=== PATIENT | male | born 1930 | race Caucasian/White ===

== ENCOUNTER 2018-11-28 16:50 | Emergency (ER) | payer MEDICARE ==
--- NOTE | 2018-11-28 17:06 | EDM.PDOC ---
ED HPI GENERAL MEDICAL PROBLEM - General Chief Complaint: Cardiovascular Problem Stated Complaint: MED[facility] Time Seen by Provider: 11/28/18 16:56 Source of Information: Reports: Patient, EMS History Limitations: Reports: Other (no old records) - History of Present Illness INITIAL COMMENTS - FREE TEXT/NARRATIVE: 88 yo male with an implanted defibrillator presents about 90-100 min after his defibrillator went off for the 3rd time in the last 2 days. He was a little light-headed before each of the administered shocks. Feels fine now. Is visiting for a 2 mos span from [place], [place]. Has not had chest pains. EMS transported today. Onset: Sudden Onset Date: 11/26/18 Duration: Day(s): (2+), Intermittent Location: Reports: Chest Quality: Reports: Other (Only pain is from the implanted defibrillator) Severity: Moderate Improves with: Reports: None Worsens with: Reports: Other (apparently going into V-fib) Context: Reports: Other (See HPI) Associated Symptoms: Reports: Other (light-headed before each shock) Treatments [employer]SM[employer]IST: Reports: Other (see below) (defibrillation) - Related Data Allergies Allergy/AdvReac Type Severity Reaction Status Date / Time No Known Allergies Allergy Verified 11/28/18 16:52 Home Meds: Home Meds Aspirin [Halfprin] 81 mg PO DAILY 11/28/18 [History] Metoprolol Succinate [Toprol XL] 25 mg PO DAILY 11/28/18 [History] atorvaSTATin [Lipitor] 10 mg PO BEDTIME 11/28/18 [History] ED ROS GENERAL - Review of Systems Review Of Systems: See Below Constitutional: Reports: No Symptoms HEENT: Reports: No Symptoms Respiratory: Reports: No Symptoms Cardiovascular: Reports: Lightheadedness Endocrine: Reports: No Symptoms GI/Abdominal: Reports: No Symptoms : Reports: No Symptoms Musculoskeletal: Reports: No Symptoms Skin: Reports: No Symptoms Neurological: Reports: No Symptoms Psychiatric: Reports: No Symptoms ED EXAM, GENERAL - Physical Exam Exam: See Below Exam Limited By: No Limitations General Appearance: Alert, WD/WN, No Apparent Distress Eye Exam: Bilateral Eye: Normal Inspection Ears: Normal External Exam, Normal Canal, Hearing Grossly Normal Ear Exam: Bilateral Ear: Auricle Normal, Canal Normal Nose: Normal Inspection, No Blood Throat/Mouth: Normal Inspection, Normal Lips, Normal Oropharynx, Normal Voice, No Airway Compromise Head: Atraumatic, Normocephalic Neck: Normal Inspection Respiratory/Chest: No Respiratory Distress, Lungs Clear, Normal Breath Sounds, No Accessory Muscle Use Cardiovascular: Regular Rate, Rhythm, No Edema GI/Abdominal: Normal Bowel Sounds, Soft, Non-Tender, No Distention Back Exam: Normal Inspection Extremities: Normal Inspection, Normal Range of Motion, Non-Tender, No Pedal Edema Neurological: Alert, Oriented, CN II-XII Intact, Normal Cognition, No Motor/ Sensory Deficits Psychiatric: Normal Affect, Normal Mood Skin Exam: Warm, Dry, Intact, Normal Color, No Rash EKG INTERPRETATION EKG Date: 11/28/18 Time: 17:00 Rhythm: NSR Rate (Beats/Min): 67 [place]: Normal P-Wave: Present QRS: Normal ST-T: Normal QT: Normal Comparison: NA - No Prior EKG EKG Interpretation Comments: LVH and early R wave transition anterior leads. Course - Vital Signs Text/Narrative:: discussed with [facility] [place], @ 1745h Last Recorded V/S: Last Vital Signs Temp 36.6 C 11/28/18 16:54 Pulse 77 11/28/18 16:54 Resp 13 11/28/18 16:54 BP 155/89 H 11/28/18 16:54 Pulse Ox 96 11/28/18 16:54 - Orders/Labs/Meds Orders: Active Orders 24 hr Category Date Time Status Cardiac Monitoring [RC] .As Directed Care 11/28/18 16:55 Active EKG Documentation Completion [RC] ASDIRECTED Care 11/28/18 16:55 Active EKG 12 Lead [EK] Routine Ther 11/28/18 16:55 Ordered Labs: Laboratory Tests 11/28/18 11/28/18 Range/Units 17:07 17:07 Sodium 139 L (140-148) mmol/L Potassium 3.8 (3.6-5.2) mmol/L Chloride 102 (100-108) mmol/L Carbon Dioxide 30 (21-32) mmol/L Anion Gap 10.8 (5.0-14.0) mmol/L BUN 15 (7-18) mg/dL Creatinine 0.8 (0.8-1.3) mg/dL Est Cr Clr Drug Dosing 75.69 mL/min Estimated GFR (MDRD) > 60 (>60) Glucose 130 H (74-106) mg/dL Calcium 8.9 (8.5-10.1) mg/dL Magnesium 1.9 (1.8-2.4) mg/dL Troponin I 0.056 (0.000-0.056) ng/mL Departure - Departure Time of Disposition: 17:46 Disposition: Home, Self-Care 01 Condition: Fair Clinical Impression: Defibrillator discharge Referrals: PCP,None [Primary Care Provider] - Forms: ED Department Discharge Additional Instructions: Increase your Toprol(metoprolol) to 50 mg daily. If this happens again go to [facility], they may want to admit you then for a trial of anti-arrhythmic medication. - My Orders Last 24 Hours: My Active Orders 11/28/18 16:55 Cardiac Monitoring [RC] .As Directed EKG Documentation Completion [RC] ASDIRECTED EKG 12 Lead [EK] Routine - Assessment/Plan Last 24 Hours: My Active Orders 11/28/18 16:55 Cardiac Monitoring [RC] .As Directed EKG Documentation Completion [RC] ASDIRECTED EKG 12 Lead [EK] Routine
== END 2018-11-28 17:59 | disposition home or self-care (01) ==
LOC: JP.ED 16:50
DX: T82.198A Other mechanical complication of other cardiac electronic device, initial encounter (principal); Z79.82 Long term (current) use of aspirin; Z79.899 Other long term (current) drug therapy
CPT/HCPCS: 36415; 80048; 83735; 84484; 93005; 93010; 99284; 99284-25

== ENCOUNTER 2020-11-10 07:40 | Emergency (ER) | payer MEDICARE ==
[2020-11-10] MEDS ORDERED: Albuterol/Ipratropium 3.0-0.5 MG/3 ML Neb Soln NEB ONE (08:54)
--- NOTE | 2020-11-10 08:57 | EDM.PDOC ---
ED HPI GENERAL MEDICAL PROBLEM - General Chief Complaint: Respiratory Problem Stated Complaint: FEVER, CONFUSION AND CHEST TIGHTNESS Time Seen by Provider: 11/10/20 08:46 Source of Information: Reports: Patient, Family, Old Records, RN Notes Reviewed History Limitations: Reports: No Limitations - History of Present Illness INITIAL COMMENTS - FREE TEXT/NARRATIVE: -89-year-old gentleman presents emergency department day complaint of shortness of breath, he states his been ill for about a week was in urgent care 2 days prior blood work chest x-ray at that time were unrevealing darted on a azithromycin and prednisone. He states he is taken 2 doses of antibiotics without any relief. He still having fevers fever this morning of 103 did have confusion with his fever. No significant sputum production mild cough feels dyspneic at this time no chest pain no or GI symptoms - Related Data Allergies Allergy/AdvReac Type Severity Reaction Status Date / Time No Known Allergies Allergy Verified 11/10/20 08:03 Home Meds: Home Meds Aspirin [Halfprin] 81 mg PO DAILY 11/28/18 [History] Metoprolol Succinate [Toprol XL] 100 mg PO DAILY 11/28/18 [History] Albuterol Sulfate [Albuterol Sulfate Hfa] 8.5 gm IH ASDIRECTED 11/10/20 [History] Azithromycin [Zithromax] 500 mg PO DAILY 11/10/20 [History] Cetirizine [ZyrTEC] 10 mg PO DAILY 11/10/20 [History] Doxycycline Monohydrate 100 mg PO BID #28 tablet 11/10/20 [Rx] Montelukast [Singulair] 10 mg PO DAILY 11/10/20 [History] predniSONE [Prednisone] 40 mg PO DAILY 11/10/20 [History] Past Medical History HEENT History: Reports: Impaired Vision Cardiovascular History: Reports: Arrhythmia, High Cholesterol, Hypertension, Pacemaker Other Cardiovascular History: left ventricle flutter Respiratory History: Reports: Asthma, SOB Gastrointestinal History: Reports: Chronic Diarrhea Genitourinary History: Reports: Prostate Disorder - Past Surgical History Head Surgeries/Procedures: Reports: None HEENT Surgical History: Reports: Adenoidectomy, Tonsillectomy Cardiovascular Surgical History: Reports: Other (See Below) Other Cardiovascular Surgeries/Procedures: defibrillator Respiratory Surgical History: Reports: None GI Surgical History: Reports: Appendectomy Dermatological Surgical History: Reports: None Social & Family History - Tobacco Use Tobacco Use Status *Q: Never Tobacco User - Caffeine Use Caffeine Use: Reports: None - Recreational Drug Use Recreational Drug Use: No ED ROS GENERAL - Review of Systems Review Of Systems: See Below Constitutional: Reports: Fever, Weakness, Fatigue HEENT: Reports: No Symptoms Respiratory: Reports: Shortness of Breath, Cough. Denies: Wheezing, Sputum Cardiovascular: Reports: Dyspnea on Exertion GI/Abdominal: Reports: No Symptoms : Reports: No Symptoms Musculoskeletal: Reports: No Symptoms ED EXAM, GENERAL - Physical Exam Exam: See Below Exam Limited By: No Limitations General Appearance: Alert, WD/WN, No Apparent Distress Respiratory/Chest: No Accessory Muscle Use, Chest Non-Tender, Decreased Breath Sounds, Crackles Cardiovascular: Regular Rate, Rhythm, No Murmur GI/Abdominal: Soft, Non-Tender Course - Vital Signs Last Recorded V/S: Last Vital Signs Temp 98 F 11/10/20 15:02 Pulse 81 11/10/20 15:02 Resp 12 11/10/20 15:02 BP 116/44 L 11/10/20 15:02 Pulse Ox 98 11/10/20 15:02 - Orders/Labs/Meds Orders: Active Orders 24 hr Category Date Time Status Peripheral IV Care [RC] . DIRECTED Care 11/10/20 10:31 Active RT Aerosol Therapy [RC] ASDIRECTED Care 11/10/20 08:54 Active Sodium Chloride 0.9% [Normal Saline] 1,000 ml Med 11/10/20 10:30 Active IV ASDIRECTED Sodium Chloride 0.9% [Saline Flush] Med 11/10/20 10:30 Active 10 ml FLUSH ASDIRECTED PRN Isolation [COMM] Stat Oth 11/10/20 08:55 Ordered Peripheral IV Insertion Adult [OM.PC] Urgent Oth 11/10/20 10:30 Ordered Medication Orders Sodium Chloride (Normal Saline) 1,000 mls @ 500 mls/hr IV ASDIRECTED STEPHANIE Last Admin: 11/10/20 10:58 Dose: 500 mls/hr Documented by: LAQUITA Sodium Chloride (Sodium Chloride 0.9% 10 Ml Syringe) 10 ml FLUSH ASDIRECTED PRN PRN Reason: Keep Vein Open Last Admin: 11/10/20 11:09 Dose: 10 ml Documented by: HENRKYL Labs: Laboratory Tests 11/10/20 11/10/20 11/10/20 Range/Units 08:55 09:16 09:16 WBC 6.0 (4.5-11.0) K/uL RBC 4.03 L (4.30-5.90) M/uL Hgb 12.3 (12.0-15.0) g/dL Hct 36.2 L (40.0-54.0) % MCV 90 (80-98) fL MCH 31 (27-31) pg MCHC 34 (32-36) % Plt Count 50 L (150-400) K/uL Add Manual Diff Yes Neutrophils % (Manual) 84 H (36-66) % Band Neutrophils % 11 (5-11) % Lymphocytes % (Manual) 3 L (24-44) % Monocytes % (Manual) 2 (2-6) % D-Dimer, Quantitative (0.0-500.0) ng/mL Sodium 130 L (140-148) mmol/L Potassium 3.8 (3.6-5.2) mmol/L Chloride 95 L (100-108) mmol/L Carbon Dioxide 27 (21-32) mmol/L Anion Gap 11.8 (5.0-14.0) mmol/L BUN 25 H D (7-18) mg/dL Creatinine 1.3 D (0.8-1.3) mg/dL Est Cr Clr Drug Dosing 41.67 mL/min Estimated GFR (MDRD) 52 L (>60) Glucose 101 (74-106) mg/dL Lactic Acid (0.4-2.0) mmol/L Calcium 8.0 L (8.5-10.1) mg/dL Total Bilirubin 2.3 H (0.2-1.0) mg/dL AST 100 H (15-37) U/L ALT 64 (12-78) U/L Alkaline Phosphatase 244 H (46-116) U/L Troponin I 0.020 (0.000-0.056) ng/mL NT-Pro-B Natriuret Pep 5634 H (5-450) pg/mL Total Protein 5.5 L (6.4-8.2) g/dL Albumin 2.5 L (3.4-5.0) g/dL Globulin 3.0 (2.3-3.5) g/dL Albumin/Globulin Ratio 0.8 L (1.2-2.2) Procalcitonin ng/mL Influenza Type A RNA Negative (NEGATIVE) RSV RNA (INAAT) Negative (NEGATIVE) Influenza Type B RNA Negative (NEGATIVE) SARS-CoV-2 RNA (BALJEET) Negative (NEGATIVE) 11/10/20 11/10/20 11/10/20 Range/Units 09:16 09:16 09:16 WBC (4.5-11.0) K/uL RBC (4.30-5.90) M/uL Hgb (12.0-15.0) g/dL Hct (40.0-54.0) % MCV (80-98) fL MCH (27-31) pg MCHC (32-36) % Plt Count (150-400) K/uL Add Manual Diff Neutrophils % (Manual) (36-66) % Band Neutrophils % (5-11) % Lymphocytes % (Manual) (24-44) % Monocytes % (Manual) (2-6) % D-Dimer, Quantitative 30906.44 H (0.0-500.0) ng/mL Sodium (140-148) mmol/L Potassium (3.6-5.2) mmol/L Chloride (100-108) mmol/L Carbon Dioxide (21-32) mmol/L Anion Gap (5.0-14.0) mmol/L BUN (7-18) mg/dL Creatinine (0.8-1.3) mg/dL Est Cr Clr Drug Dosing mL/min Estimated GFR (MDRD) (>60) Glucose (74-106) mg/dL Lactic Acid 1.9 (0.4-2.0) mmol/L Calcium (8.5-10.1) mg/dL Total Bilirubin (0.2-1.0) mg/dL AST (15-37) U/L ALT (12-78) U/L Alkaline Phosphatase (46-116) U/L Troponin I (0.000-0.056) ng/mL NT-Pro-B Natriuret Pep (5-450) pg/mL Total Protein (6.4-8.2) g/dL Albumin (3.4-5.0) g/dL Globulin (2.3-3.5) g/dL Albumin/Globulin Ratio (1.2-2.2) Procalcitonin 2.69 H* ng/mL Influenza Type A RNA (NEGATIVE) RSV RNA (INAAT) (NEGATIVE) Influenza Type B RNA (NEGATIVE) SARS-CoV-2 RNA (BALJEET) (NEGATIVE) Meds: Medications Generic Name Dose Route Start Last Admin Trade Name Adalidq PRN Reason Stop Dose Admin Sodium Chloride 1,000 mls @ 500 mls/hr 11/10/20 10:30 11/10/20 10:58 Normal Saline IV 500 mls/hr ASDIRECTED STEPHANIE Administration Sodium Chloride 10 ml 11/10/20 10:30 11/10/20 11:09 Sodium Chloride 0.9% 10 Ml Syringe FLUSH 10 ml ASDIRECTED PRN Administration Keep Vein Open Discontinued Medications Generic Name Dose Route Start Last Admin Trade Name Oswald PRN Reason Stop Dose Admin Albuterol/Ipratropium 3 ml 11/10/20 08:54 11/10/20 09:10 Albuterol/Ipratropium 3.0-0.5 Mg/3 Ml Neb Soln NEB 11/10/20 08:55 3 ml ONETIME ONE Administration Furosemide 40 mg 11/10/20 11:38 11/10/20 12:16 Furosemide 40 Mg/4 Ml Vial IVPUSH 11/10/20 11:39 40 mg ONETIME ONE Administration Sodium Chloride 100 mls @ 3 mls/sec 11/10/20 10:45 11/10/20 11:09 Normal Saline IV 11/10/20 10:46 3 mls/sec ASDIRECTED STEPHANIE Administration Iopamidol 100 ml 11/10/20 10:45 11/10/20 11:08 Iopamidol 755 Mg/Ml 100 Ml Bottle IV 11/10/20 10:46 100 ml . DIRECTED STEPHANIE Administration Sodium Chloride 10 ml 11/10/20 10:36 11/10/20 10:58 Sodium Chloride 0.9% 10 Ml Syringe FLUSH 11/10/20 10:37 10 ml ONETIME ONE Administration Departure - Departure Time of Disposition: 15:18 Disposition: Home, Self-Care 01 Condition: Fair Clinical Impression: Tick-borne disease - Discharge Information Prescriptions: Doxycycline Monohydrate 100 mg PO BID #28 tablet Referrals: PCP,None [Primary Care Provider] - Forms: ED Department Discharge Additional Instructions: Take full course of antibiotics, your antibiotics have been faxed to [facility], please keep your follow-up appointment with the [facility] in November. To help combat tick disease recommend a product called permethrin which can be purchased at [employer] or online Sepsis Event Note (ED) - Evaluation Sepsis Screening Result: No Definite Risk - Focused Exam Vital Signs: Vital Signs Temp Pulse Resp BP Pulse Ox 11/10/20 15:02 98 F 81 12 116/44 L 98 11/10/20 14:00 78 12 119/57 L 96 11/10/20 13:00 83 12 119/54 L 95 11/10/20 12:00 98 F 72 14 115/55 L 96 11/10/20 10:59 14 113/43 L 98 11/10/20 10:00 77 16 111/47 L 94 L 11/10/20 08:08 98.0 F 75 15 105/47 L 96 11/10/20 08:02 98.0 F 75 15 105/47 L 96 - My Orders Last 24 Hours: My Active Orders 11/10/20 08:54 RT Aerosol Therapy [RC] ASDIRECTED 11/10/20 08:55 Isolation [COMM] Stat 11/10/20 10:30 Sodium Chloride 0.9% [Normal Saline] 1,000 ml IV ASDIRECTED Sodium Chloride 0.9% [Saline Flush] 10 ml FLUSH ASDIRECTED PRN Peripheral IV Insertion Adult [OM.PC] Urgent 11/10/20 10:31 Peripheral IV Care [RC] . DIRECTED - Assessment/Plan Last 24 Hours: My Active Orders 11/10/20 08:54 RT Aerosol Therapy [RC] ASDIRECTED 11/10/20 08:55 Isolation [COMM] Stat 11/10/20 10:30 Sodium Chloride 0.9% [Normal Saline] 1,000 ml IV ASDIRECTED Sodium Chloride 0.9% [Saline Flush] 10 ml FLUSH ASDIRECTED PRN Peripheral IV Insertion Adult [OM.PC] Urgent 11/10/20 10:31 Peripheral IV Care [RC] . DIRECTED Plan: Assessment Acuity = acute Site and laterality = tickborne illness Etiology = suspicious for anaplasmosis Manifestations = none Location of injury = Home Lab values = CBC reveals the platelets low at 50 consistent with thr ombocytopenia, D-dimer markedly elevated 22,096 of uncertain significance sodium low at 130 hyponatremia lactic acid normal 1.9 total bilirubin elevated 2.3 consistent hyperbilirubinemia, AST elevated at 100 consistent with elevated liver enzymes troponin is 0.020 within the normal range but detectable, BNP elevated 5634 consistent with fluid overload type pattern, albumin low at 2.5 consistent with hypobulimia procalcitonin elevated 2.69 of uncertain significance Covid was negative influenza a and B both negative RSV negative, chest x-ray shows no acute pulmonary process however CT scan does show some bronchial wall thickening no pulmonary embolism no pneumonia is identified ultrasound shows normal gallbladder but dilated gallbladder but duct at 8 mm of uncertain significance Plan I did review lab CT scan results with him he does admit that he has found some small deer ticks on him when [place] out in [place] I am very suspicious for tickborne illness given his fever inflammatory markers being extremely high. His lab work does not fit with a pneumonia does not fit with the sepsis does not fully fit with congestive heart failure. Does not fit with gallbladder disease. Can stop his azithromycin and prednisone change antibiotics to doxycycline for 14 days he does have a follow-up appointment with primary care first part of November his medications have been faxed to [facility] This note was dictated using [employer] voice recognition software please call with any questions on syntax or grammar.
[2020-11-10 09:51] LABS: CORONAVIRUS COVID-19 NAA NEGATIVE (NEGATIVE)
--- NOTE | 2020-11-10 09:59 | CR ---
CHEST: 2 view CLINICAL HISTORY:SOB COMPARISON:None FINDINGS: The heart size, pulmonary vascularity and hilar structures are normal. No infiltrate effusion or pneumothorax is seen. Lungs are emphysematous. Patient has a permanent cardiac pacer/defibrillator IMPRESSION: No acute cardiopulmonary process. Emphysematous changes Permanent cardiac pacer/fibrillator
[2020-11-10] MEDS ORDERED: Sodium Chloride 0.9% 10 ML Syringe FLUSH PRN (10:30)
[2020-11-10] MEDS ORDERED: Sodium Chloride 0.9% 1,000 ML IV SCH (10:30)
[2020-11-10] MEDS ORDERED: Sodium Chloride 0.9% 10 ML Syringe FLUSH ONE (10:36)
[2020-11-10] MEDS ORDERED: Iopamidol 755 Mg/ML 100 ML Bottle IV SCH (10:45)
[2020-11-10] MEDS ORDERED: Sodium Chloride 0.9% 100 ML IV SCH (10:45)
--- NOTE | 2020-11-10 11:18 | CT ---
Ang Chest CLINICAL HISTORY: Elevated d-dimer, elevated BNP TECHNIQUE: Thin section axial contiguous tomographic sections were taken through the chest after bolus IV iodinated contrast administration. Coronal and sagittal images were reconstructed. Auto dosage reduction and iterative reconstruction techniques employed. FINDINGS: There is patchy groundglass opacification in both lower lung almazan. There is diffuse bronchial thickening. There are a few scattered bulla. No pulmonary masses identified. No mediastinal mass or lymphadenopathy is identified. Patient is a permanent cardiac pacer/defibrillator. No acute intraluminal thrombus is identified. There are some irregularities in some of the smaller branching vessels in the left lower lobe. This may be from prior thrombus and recanalization. There is a small right pleural effusion and some right lower lobe airspace disease which appears to be patchy atelectasis IMPRESSION: No acute pulmonary emboli identified Patchy posterior groundglass opacities bilaterally. This may represent some dependent edema in the lung almazan Moderate diffuse bronchial thickening Scattered areas of pleural parenchymal scarring Small bilateral effusions
[2020-11-10] MEDS ORDERED: Furosemide 40 MG/4 ML VIAL IVPUSH ONE (11:38)
--- NOTE | 2020-11-10 14:51 | US ---
Abdomen Ltd CLINICAL HISTORY: Elevated bilirubin COMPARISON: None. TECHNIQUE: Real-time images were obtained through the right upper quadrant. FINDINGS: The liver is free of mass or biliary dilatation. There is normal hepatic echotexture. The gallbladder has a normal appearance. The common bile duct measures 8 mm. The pancreas is free of masses seen. Tail is obscured. The right kidney has a normal appearance. The IVC is normal. IMPRESSION: Common bile duct is borderline dilated at 8 mm. This may be age-related No mass or stones identified
== END 2020-11-10 15:51 | disposition home or self-care (01) ==
LOC: JP.ED 07:40
DX: A93.8 Other specified arthropod-borne viral fevers (principal); E78.00 Pure hypercholesterolemia, unspecified; I10 Essential (primary) hypertension; J45.909 Unspecified asthma, uncomplicated; Z79.899 Other long term (current) drug therapy; Z79.82 Long term (current) use of aspirin; Z95.0 Presence of cardiac pacemaker; Z20.822 Contact with and (suspected) exposure to COVID-19
CPT/HCPCS: 0241U; 36415; 71046; 71275; 76705; 80053; 83605; 83880; 84145; 84484; 85025; 85379; 94640; 96374; 99285; J1940; J7030; Q9967; J7620-GY

== ENCOUNTER 2020-12-13 17:08 | Emergency (ER) | payer MEDICARE ==
--- NOTE | 2020-12-13 18:44 | EDM.PDOC ---
ED HPI GENERAL MEDICAL PROBLEM - General Chief Complaint: Neurological Problem Stated Complaint: DIZZINESS Time Seen by Provider: 12/13/20 18:06 Source of Information: Reports: Patient History Limitations: Reports: No Limitations - History of Present Illness INITIAL COMMENTS - FREE TEXT/NARRATIVE: Ceferino is an 89-year-old male presenting to the ED for evaluation of probable syncopal episode that occurred yesterday. The patient states that he was walking in from his porch into his house and tried to open a door. He acutely became short of breath and started to take deep rapid breaths to catch his air. He started to feel funny and then apparently passed out falling through the door into the house. He did strike his forehead on the ground and was unresponsive for about 3 to 4 seconds according to his family. He did not have any loss of bowel or bladder control. He did sustain significant hematoma to the center of his forehead and this morning when he awoke he had bilateral periorbital ecchymosis. He does also have swelling over the nasal bridge but denies any significant tenderness there. He does state that this is happened before but he is never completely gone out except one time prior which was before he had his AICD pacemaker placed. He does recall that the event that led to that was a syncopal episode and that he had to be "shocked by medics" at his house. He reports that he woke up in the hospital after that and the next day he ended up getting the AICD pacemaker which was about 5 or 6 years ago. He does report they checked the device every 3 to 4 months. He says it has been a while since he has been "shocked". He is complaining of a mild headache and neck pain today. He states the neck pain is mostly on the muscles on the side of his neck (left greater than right). He also reports that he had a similar episode that lasted a few minutes today but he did not pass out this time he simply kneeled in he started to feel better. He reports that each time it starts with feeling like he cannot catch his breath and that is few seconds before he blacks out. - Related Data Allergies Allergy/AdvReac Type Severity Reaction Status Date / Time No Known Allergies Allergy Verified 12/13/20 17:23 Home Meds: Home Meds Aspirin [Halfprin] 81 mg PO DAILY 11/28/18 [History] Metoprolol Succinate [Toprol XL] 100 mg PO DAILY 11/28/18 [History] Albuterol Sulfate [Albuterol Sulfate Hfa] 8.5 gm IH ASDIRECTED 11/10/20 [History] Azithromycin [Zithromax] 500 mg PO DAILY 11/10/20 [History] Cetirizine [ZyrTEC] 10 mg PO DAILY 11/10/20 [History] Montelukast [Singulair] 10 mg PO DAILY 11/10/20 [History] Ascorbic Acid [Vitamin C] 1 tab PO DAILY 12/13/20 [History] methocarbamoL [Methocarbamol] 500 mg PO QID PRN #28 tablet 12/13/20 [Rx] Past Medical History HEENT History: Reports: Impaired Vision Cardiovascular History: Reports: Arrhythmia, High Cholesterol, Hypertension, Pacemaker Other Cardiovascular History: left ventricle flutter Respiratory History: Reports: Asthma, SOB Gastrointestinal History: Reports: Chronic Diarrhea Genitourinary History: Reports: Prostate Disorder - Past Surgical History Head Surgeries/Procedures: Reports: None HEENT Surgical History: Reports: Adenoidectomy, Tonsillectomy Cardiovascular Surgical History: Reports: Other (See Below) Other Cardiovascular Surgeries/Procedures: defibrillator Respiratory Surgical History: Reports: None GI Surgical History: Reports: Appendectomy Dermatological Surgical History: Reports: None Social & Family History - Caffeine Use Caffeine Use: Reports: None ED ROS GENERAL - Review of Systems Review Of Systems: See Below Constitutional: Reports: No Symptoms HEENT: Reports: Vision Change (Mild blurring of the vision), Other (Swelling and bruising around both orbits) Respiratory: Reports: Shortness of Breath (Only before the syncopal episode) Cardiovascular: Reports: No Symptoms Endocrine: Reports: No Symptoms GI/Abdominal: Reports: No Symptoms : Reports: No Symptoms Musculoskeletal: Reports: Neck Pain (Mild neck pain on the left side. Muscle stiffness bilateral neck paraspinal muscles.) Skin: Reports: No Symptoms Neurological: Reports: Dizziness (Mild dizziness), Headache (Mild headache) Psychiatric: Reports: No Symptoms Hematologic/Lymphatic: Reports: No Symptoms Immunologic: Reports: No Symptoms - Physical Exam Exam: See Below Exam Limited By: No Limitations General Appearance: Alert, No Apparent Distress Eye Exam: Bilateral Eye: EOMI, Periorbital Changes (Periorbital hematomas), PERRL Ears: Normal External Exam, Normal TMs Nose: Normal Inspection, Normal Mucosa, No Blood Throat/Mouth: Normal Inspection, Normal Lips, Normal Teeth, Normal Oropharynx, Normal Voice, No Airway Compromise Head Exam: Normocephalic, Facial Swelling (Large forehead hematoma), Facial Tenderness (Redness over the hematoma mild tenderness over the nasal bridge) Neck: Supple, Full Range of Motion, Tender Lateral (Tenderness over the paraspinal muscles left greater than right) Respiratory/Chest: No Respiratory Distress, Lungs Clear, Normal Breath Sounds Cardiovascular: Normal Peripheral Pulses, Regular Rate, Rhythm, No Murmur GI/Abdominal: Normal Bowel Sounds, Soft, Non-Tender Neuro Exam (Abbreviated): Alert, Oriented, CN II-XII Intact, Normal Cognition, No Motor/Sensory Deficits Back Exam: Normal Inspection, Full Range of Motion Extremities: Normal Inspection, Normal Range of Motion, No Pedal Edema, Normal Capillary Refill Psychiatric: Normal Affect, Normal Mood Skin Exam: Warm, Dry, Ecchymosis (Periorbital ecchymosis) #1 Interpretation EKG Date: 12/13/20 Time: 18:32 Rhythm: Other (Atrial paced rhythm) Rate (Beats/Min): 60 [place]: Normal P-Wave: Present (Atrial paced rhythm) QRS: Wide ST-T: Other QT: Prolonged Course - Vital Signs Last Recorded V/S: Last Vital Signs Temp 36.6 C 12/13/20 17:43 Pulse 75 12/13/20 17:43 Resp 13 12/13/20 17:43 BP 142/55 H 12/13/20 17:43 Pulse Ox 97 12/13/20 17:43 Orthostatic Blood Pressure [ 108/57 Standing] Orthostatic Blood Pressure [ 120/61 Sitting] Orthostatic Blood Pressure [ 117/54 Supine] - Orders/Labs/Meds Orders: Active Orders 24 hr Category Date Time Status Cervical Spine wo Cont [CT] Stat Exams 12/13/20 18:21 Taken Head wo Cont [CT] Stat Exams 12/13/20 18:21 Taken Max Facial Sinus wo Cont [CT] Stat Exams 12/13/20 18:21 Taken EKG 12 Lead [EK] Routine Ther 12/13/20 18:21 Ordered Labs: Laboratory Tests 12/13/20 12/13/20 Range/Units 18:30 18:30 WBC 7.0 (4.5-11.0) K/uL RBC 3.96 L (4.30-5.90) M/uL Hgb 12.0 (12.0-15.0) g/dL Hct 37.8 L (40.0-54.0) % MCV 96 (80-98) fL MCH 30 (27-31) pg MCHC 32 (32-36) % Plt Count 204 (150-400) K/uL Neut % (Auto) 57.6 (36-66) % Lymph % (Auto) 27.8 (24-44) % [place] % (Auto) 13.5 H (2-6) % Eos % (Auto) 1.0 L (2-4) % Baso % (Auto) 0.1 (0-1) % Sodium 138 L (140-148) mmol/L Potassium 4.0 (3.6-5.2) mmol/L Chloride 103 (100-108) mmol/L Carbon Dioxide 29 (21-32) mmol/L Anion Gap 10.0 (5.0-14.0) mmol/L BUN 15 (7-18) mg/dL Creatinine 0.8 (0.8-1.3) mg/dL Est Cr Clr Drug Dosing 13.36 mL/min Estimated GFR (MDRD) > 60 (>60) Glucose 106 (74-106) mg/dL Calcium 8.5 (8.5-10.1) mg/dL Magnesium 1.9 (1.8-2.4) mg/dL Total Bilirubin 0.3 D (0.2-1.0) mg/dL AST 19 D (15-37) U/L ALT 18 (12-78) U/L Alkaline Phosphatase 152 H (46-116) U/L Troponin I < 0.017 (0.000-0.056) ng/mL Total Protein 6.0 L (6.4-8.2) g/dL Albumin 2.7 L (3.4-5.0) g/dL Globulin 3.3 (2.3-3.5) g/dL Albumin/Globulin Ratio 0.8 L (1.2-2.2) TSH, Ultra Sensitive 1.982 (0.358-3.740) uIU/mL - Radiology Interpretation Free Text/Narrative:: I reviewed the edges of the CT of the head without contrast as well as the report demonstrating as follows: IMPRESSION: No evidence of acute intracranial trauma. Frontal scalp hematoma. Dictated by Vickey Leon MD @ 12/13/2020 7:34:23 PM Please note that all CT scans at this facility use dose modulation, iterative reconstruction, and/or weight-based dosing when appropriate to reduce radiation dose to as low as reasonably achievable. Dictated by: Vickey Leon MD @ 12/13/2020 19:34:27 I reviewed the images of the CT of the cervical spine without contrast as well as the report demonstrating as follows: FINDINGS: Vertebral alignment: Alignment is normal. Vertebrae: There are no fractures or suspicious bony lesions. Discs and facet joints: Multilevel degenerative changes. Extraspinal findings: Prevertebral soft tissues, visualized airway, and visualized lungs are unremarkable. IMPRESSION: No evidence of acute cervical spine trauma. Multilevel degenerative changes. Dictated by Vickey Leon MD @ 12/13/2020 7:36:42 PM I reviewed the images of the CT of the facial bones without contrast as well as the report demonstrating as follows: FINDINGS: Facial bones: No fractures or bone lesions. Specifically the nasal bones, temporomandibular joints, maxilla and mandible appear intact. Orbits and globes: Unremarkable. Sinuses: No acute or significant findings. Soft tissues: Frontal scalp hematoma. IMPRESSION: No fractures. Frontal scalp hematoma. Dictated by Vickey Leon MD @ 12/13/2020 7:32:37 PM - Re-Assessments/Exams Free Text/Narrative Re-Assessment/Exam: 12/13/20 19:41 reviewed the reports on the CT of the head, facial bones, and cervical spine. There were no acute findings other than a facial hematoma over the forehead. There were no acute fractures. There was no evidence for intracranial bleed, mass, or midline shift. There was no cranial abnormalities noted. The cervical spine showed multilevel degenerative disc changes but no acute findings. His labs were reviewed showing a normal CBC with a leukocyte count of 7.0, hemoglobin of 12.0, hematocrit of 37.8 and a platelet count of 204,000. Comprehensive metabolic panel was normal. Troponin was less than 0.017. TSH was normal at 1.982. EKG shows an atrial paced rhythm with a wide QRS and prolonged QT. This is unchanged from his previous EKG. It sounds like the patient is having a syncopal episode likely vasovagal in nature, however, I cannot rule out the possibility of a tacky or bradycardia arrhythmia causing his symptoms. He does report having acute onset of shortness of breath like he cannot catch his breath just prior to the events which would be worrisome for a cardiac cause. He may benefit from either a Holter monitor or Zio patch to try to catch 1 of these events as they appear to occur somewhat frequently. I will have his primary physician set this up. At this time, I do not see anything worrisome, however, the patient knows what to do if he has onset of symptoms which is to sit or lay down to try to preserve cerebral blood flow. To date, these all seem to be fairly brief episodes. He did sit suffer significant facial contusions which will take time to resolve. I will put him on a little bit of methocarbamol for the cervical spasm (500 mg 4 times daily as needed for muscle spasm dispensing 28 tablets.) Indications to return to the ED were discussed but at this time the patient is suitable for discharge home in satisfactory condition. Departure - Departure Time of Disposition: 19:46 Disposition: Home, Self-Care 01 Clinical Impression: Syncopal episodes Qualifiers: Syncope type: unspecified Qualified Code(s): R55 - Syncope and collapse Contusion of face Qualifiers: Encounter type: initial encounter Qualified Code(s): S00.83XA - Contusion of other part of head, initial encounter Traumatic contusion of periorbital region Qualifiers: Encounter type: initial encounter Laterality: unspecified laterality Qualified Code(s): S05.10XA - Contusion of eyeball and orbital tissues, unspecified eye, initial encounter Acute cervical myofascial strain Qualifiers: Encounter type: initial encounter Qualified Code(s): S16.1XXA - Strain of muscle, fascia and tendon at neck level, initial encounter - Discharge Information Instructions: Facial or Scalp Contusion, [id number], Syncope, [id number], Cervical Strain and Sprain Rehab-Sports[facility] Referrals: Netta Gaxiola PA-C [Primary Care Provider] - Forms: ED Department Discharge Care Plan Goals: The work-up today suggest that she may be having arrhythmias causing your sudden shortness of breath and episodes where you are passing out or near passing out. I would recommend talking to your primary care provider about getting a device called a Zio patch which is a 30-day Holter monitor so you are able to see what cardiac event is causing the symptoms. Unfortunately this is not something we typically set up from the emergency room because the report would come back to us in the emergency room and not to your primary doctor. Your work-up today has not shown any significant injury other than strain of the neck muscles and significant bruising of your face. Your lab work today also looked good. You may want to talk to cardiology about interrogating your pacemaker/defibrillator to make sure that the battery is still adequate. I am sending you home with a prescription for methocarbamol which is a fairly potent muscle relaxer to help reduce the spasm in your neck. You may also use ice on the area 20 to 30 minutes every couple hours you are awake for the next day or 2 to reduce spasm. Continue to take Tylenol for pain. Feel free to contact us if you have any questions. Sepsis Event Note (ED) - Evaluation Sepsis Screening Result: No Definite Risk - Focused Exam Vital Signs: Vital Signs Temp Pulse Resp BP Pulse Ox 12/13/20 17:43 36.6 C 75 13 142/55 H 97 12/13/20 17:21 36.6 C 75 13 142/55 H 97 - Problem List & Annotations (1) Acute cervical myofascial strain SNOMED Code(s): 037616496, 513518161, 654064345 Code(s): S16.1XXA - STRAIN OF MUSCLE, FASCIA AND TENDON AT NECK LEVEL, INIT Status: Acute Priority: Medium Current Visit: Yes Qualifiers: Encounter type: initial encounter Qualified Code(s): S16.1XXA - Strain of muscle, fascia and tendon at neck level, initial encounter (2) Contusion of face SNOMED Code(s): 955319326 Code(s): S00.83XA - CONTUSION OF OTHER PART OF HEAD, INITIAL ENCOUNTER Status: Acute Priority: Medium Current Visit: Yes Qualifiers: Encounter type: initial encounter Qualified Code(s): S00.83XA - Contusion of other part of head, initial encounter (3) Syncopal episodes SNOMED Code(s): 289619628 Code(s): R55 - SYNCOPE AND COLLAPSE Status: Acute Priority: Medium Current Visit: Yes Qualifiers: Syncope type: unspecified Qualified Code(s): R55 - Syncope and collapse (4) Traumatic contusion of periorbital region SNOMED Code(s): 265326339 Code(s): S05.10XA - CONTUSION OF EYEBALL AND ORBITAL TISSUES, UNSP EYE, INIT Status: Acute Priority: Medium Current Visit: Yes Qualifiers: Encounter type: initial encounter Laterality: unspecified laterality Qualified Code(s): S05.10XA - Contusion of eyeball and orbital tissues, unspecified eye, initial encounter - Problem List Review Problem List Initiated/Reviewed/Updated: Yes - My Orders Last 24 Hours: My Active Orders 12/13/20 18:21 Cervical Spine wo Cont [CT] Stat Head wo Cont [CT] Stat Max Facial Sinus wo Cont [CT] Stat EKG 12 Lead [EK] Routine - Assessment/Plan Last 24 Hours: My Active Orders 12/13/20 18:21 Cervical Spine wo Cont [CT] Stat Head wo Cont [CT] Stat Max Facial Sinus wo Cont [CT] Stat EKG 12 Lead [EK] Routine
--- NOTE | 2020-12-13 19:34 | CRLCT ---
For Patients: As a result of the Cures Act, medical imaging exams and procedure reports are released immediately into your electronic medical record. You may view this report before your referring provider. If you have questions, please contact your health care provider. INDICATION: Trauma TECHNIQUE: CT maxillofacial without contrast. COMPARISON: None FINDINGS: Facial bones: No fractures or bone lesions. Specifically the nasal bones, temporomandibular joints, maxilla and mandible appear intact. Orbits and globes: Unremarkable. Sinuses: No acute or significant findings. Soft tissues: Frontal scalp hematoma. IMPRESSION: No fractures. Frontal scalp hematoma. Dictated by Vickey Leon MD @ 12/13/2020 7:32:37 PM Please note that all CT scans at this facility use dose modulation, iterative reconstruction, and/or weight-based dosing when appropriate to reduce radiation dose to as low as reasonably achievable. Dictated by: Vickey Leon MD @ 12/13/2020 19:32:43 (Electronically Signed)
--- NOTE | 2020-12-13 19:36 | CRLCT ---
For Patients: As a result of the Century Cures Act, medical imaging exams and procedure reports are released immediately into your electronic medical record. You may view this report before your referring provider. If you have questions, please contact your health care provider. INDICATION: Trauma TECHNIQUE: CT head without contrast. COMPARISON: None FINDINGS: CSF spaces: Within normal limits for age. Brain parenchyma: The camilo-white differentiation is normal. No sign of mass, hemorrhage, or midline shift. Skull base and calvarium: The visualized paranasal sinuses and mastoid air cells demonstrate no acute or significant findings. The visualized orbits are grossly unremarkable. No skull fractures. Frontal scalp hematoma. IMPRESSION: No evidence of acute intracranial trauma. Frontal scalp hematoma. Dictated by Vickey Leon MD @ 12/13/2020 7:34:23 PM Please note that all CT scans at this facility use dose modulation, iterative reconstruction, and/or weight-based dosing when appropriate to reduce radiation dose to as low as reasonably achievable. Dictated by: Vickey Leon MD @ 12/13/2020 19:34:27 (Electronically Signed)
--- NOTE | 2020-12-13 19:38 | CRLCT ---
For Patients: As a result of the Cures Act, medical imaging exams and procedure reports are released immediately into your electronic medical record. You may view this report before your referring provider. If you have questions, please contact your health care provider. INDICATION: Trauma TECHNIQUE: CT cervical spine without contrast. COMPARISON: None FINDINGS: Vertebral alignment: Alignment is normal. Vertebrae: There are no fractures or suspicious bony lesions. Discs and facet joints: Multilevel degenerative changes. Extraspinal findings: Prevertebral soft tissues, visualized airway, and visualized lungs are unremarkable. IMPRESSION: No evidence of acute cervical spine trauma. Multilevel degenerative changes. Dictated by Vickey Leon MD @ 12/13/2020 7:36:42 PM Please note that all CT scans at this facility use dose modulation, iterative reconstruction, and/or weight-based dosing when appropriate to reduce radiation dose to as low as reasonably achievable. Dictated by: Vickey Leon MD @ 12/13/2020 19:36:45 (Electronically Signed)
[2020-12-13] MEDS ORDERED: Methocarbamol 500 MG Tab PO ONE (19:48)
== END 2020-12-13 20:24 | disposition home or self-care (01) ==
LOC: JP.ED 17:08
DX: S16.1XXA Strain of muscle, fascia and tendon at neck level, initial encounter (principal); S05.10XA Contusion of eyeball and orbital tissues, unspecified eye, initial encounter; R55 Syncope and collapse; E78.00 Pure hypercholesterolemia, unspecified; I10 Essential (primary) hypertension; Z95.0 Presence of cardiac pacemaker; Z79.82 Long term (current) use of aspirin; Z79.899 Other long term (current) drug therapy; W18.09XA Striking against other object with subsequent fall, initial encounter
CPT/HCPCS: 36415; 70450; 70486; 72125; 80053; 83735; 84443; 84484; 85025; 93005; 99285; A9270

== ENCOUNTER 2021-12-22 11:16 | Emergency (ER) | payer MEDICARE ==
[2021-12-22 12:56] LABS: ESTIMATED GFR 85 mL/min (>60)
== END 2021-12-22 13:51 | disposition home or self-care (01) ==
LOC: JP.ED 11:16
DX: J18.9 Pneumonia, unspecified organism (principal); I11.0 Hypertensive heart disease with heart failure; I50.9 Heart failure, unspecified; J45.909 Unspecified asthma, uncomplicated; Z79.899 Other long term (current) drug therapy; Z79.82 Long term (current) use of aspirin; Z20.822 Contact with and (suspected) exposure to COVID-19
CPT/HCPCS: 36415; 71046; 80053; 85025; 99285; U0002

== ENCOUNTER 2021-12-28 11:20 | Inpatient (IN) | payer MEDICARE ==
[2021-12-28] MEDS ORDERED: Acetaminophen 325 MG Tab PO PRN (13:26)
[2021-12-28] MEDS ORDERED: Melatonin 3 MG Tab PO PRN (13:26)
[2021-12-28] MEDS ORDERED: Ondansetron 4 MG/2 ML SDV IV PRN (13:26)
[2021-12-28] MEDS ORDERED: Magnesium Hydroxide 400 MG/5 ML Susp 30 ML Cup PO PRN (13:26)
[2021-12-28] MEDS ORDERED: Sodium Chloride 0.9% 10 ML Syringe FLUSH PRN (13:26)
[2021-12-28] MEDS ORDERED: Ondansetron 4 MG Tab.DIS PO PRN (13:26)
[2021-12-28] MEDS ORDERED: Furosemide 40 MG/4 ML VIAL IVPUSH ONE ×2 (14:00→22:00)
[2021-12-28 14:08] LABS: TROPONIN I HIGH SENSITIVITY 30.1 pg/mL (<=60.3)
[2021-12-28] MEDS: Albuterol/Ipratropium 3.0-0.5 MG/3 ML Neb Soln NEB SCH ×2 (15:02→21:25)
[2021-12-29] MEDS ORDERED: Potassium Chloride 20 MEQ in Premix Bag 1 BAG IV ONE (05:57)
[2021-12-29] MEDS ORDERED: Potassium Chloride 20 MEQ Tab.ER PO ONE ×2 (05:57→15:13)
[2021-12-29] MEDS ORDERED: Lidocaine 1% 5 ML VIAL INJECT ONE (05:59)
[2021-12-29] MEDS: Albuterol/Ipratropium 3.0-0.5 MG/3 ML Neb Soln NEB SCH ×2 (07:11→11:06)
[2021-12-29] MEDS: Furosemide 40 MG/4 ML VIAL IVPUSH SCH (09:15)
[2021-12-29] MEDS ORDERED: Metoprolol Succinate 25 MG Tab.ER PO SCH (11:00)
[2021-12-29] MEDS: predniSONE 5 MG Tab PO SCH ×2 (12:34→20:49)
[2021-12-29] MEDS: Tamsulosin 0.4 MG Cap.ER PO SCH (12:34)
[2021-12-29] MEDS: Montelukast 10 MG Tab PO SCH (12:34)
[2021-12-29] MEDS: Aspirin 81 MG Tab.EC PO SCH (12:34)
[2021-12-29] MEDS: ABIRATERONE ACETATE 250 MG PO SCH (12:47)
[2021-12-29] MEDS: Albuterol 0.083% 2.5 MG/3 ML Neb Soln NEB PRN (14:33)
[2021-12-29] MEDS ORDERED: Furosemide 40 MG/4 ML VIAL IVPUSH ONE (17:00)
[2021-12-30] MEDS: Furosemide 40 MG/4 ML VIAL IVPUSH SCH (08:19)
[2021-12-30] MEDS: Montelukast 10 MG Tab PO SCH (08:19)
[2021-12-30] MEDS: predniSONE 5 MG Tab PO SCH ×2 (08:19→20:18)
[2021-12-30] MEDS: ABIRATERONE ACETATE 250 MG PO SCH (08:19)
[2021-12-30] MEDS: Tamsulosin 0.4 MG Cap.ER PO SCH (08:19)
[2021-12-30] MEDS: Aspirin 81 MG Tab.EC PO SCH (08:19)
[2021-12-30] MEDS: Potassium Chloride 20 MEQ Tab.ER PO SCH ×2 (09:22→20:18)
[2021-12-30] MEDS: Metoprolol Succinate 50 MG Tab.ER PO SCH (11:53)
[2021-12-30] MEDS ORDERED: Benzocaine/Cetylpyridinium/Menthol Lozenge MUCMEM PRN (19:32)
[2021-12-31] MEDS: Albuterol 0.083% 2.5 MG/3 ML Neb Soln NEB PRN (02:53)
[2021-12-31] MEDS: predniSONE 5 MG Tab PO SCH ×2 (08:32→20:03)
[2021-12-31] MEDS: Tamsulosin 0.4 MG Cap.ER PO SCH (08:32)
[2021-12-31] MEDS: Furosemide 20 MG Tab PO SCH (08:32)
[2021-12-31] MEDS: Potassium Chloride 20 MEQ Tab.ER PO SCH ×2 (08:32→20:03)
[2021-12-31] MEDS: Aspirin 81 MG Tab.EC PO SCH (08:32)
[2021-12-31] MEDS: ABIRATERONE 250 MG PO SCH (08:32)
[2021-12-31] MEDS: Metoprolol Succinate 50 MG Tab.ER PO SCH (08:33)
[2021-12-31] MEDS: Montelukast 10 MG Tab PO SCH (08:33)
[2021-12-31] MEDS ORDERED: Furosemide 40 MG/4 ML VIAL IVPUSH ONE (19:00)
[2022-01-01] MEDS: Metoprolol Succinate 50 MG Tab.ER PO SCH (08:47)
[2022-01-01] MEDS: ABIRATERONE 250 MG PO SCH (08:48)
[2022-01-01] MEDS: Potassium Chloride 20 MEQ Tab.ER PO SCH (08:48)
[2022-01-01] MEDS: Furosemide 20 MG Tab PO SCH (08:48)
[2022-01-01] MEDS: Tamsulosin 0.4 MG Cap.ER PO SCH (08:48)
[2022-01-01] MEDS: Montelukast 10 MG Tab PO SCH (08:48)
[2022-01-01] MEDS: Aspirin 81 MG Tab.EC PO SCH (08:48)
[2022-01-01] MEDS: predniSONE 5 MG Tab PO SCH (08:48)
== END 2022-01-01 13:45 | disposition home or self-care (01) | DRG 291 ==
LOC: JP.ICU 11:20
PROVIDERS: ADMIT Internal Medicine; ATTEND Hospitalist
DX: I11.0 Hypertensive heart disease with heart failure (principal); I50.41 Acute combined systolic (congestive) and diastolic (congestive) heart failure; J96.01 Acute respiratory failure with hypoxia; I25.5 Ischemic cardiomyopathy; I08.1 Rheumatic disorders of both mitral and tricuspid valves; E78.00 Pure hypercholesterolemia, unspecified; J45.20 Mild intermittent asthma, uncomplicated; Z90.49 Acquired absence of other specified parts of digestive tract; Z95.810 Presence of automatic (implantable) cardiac defibrillator; Z88.8 Allergy status to other drugs, medicaments and biological substances; Z79.82 Long term (current) use of aspirin; Z79.899 Other long term (current) drug therapy; Z95.0 Presence of cardiac pacemaker; Z85.46 Personal history of malignant neoplasm of prostate
CPT/HCPCS: 36415; 80048; 83735; 84132; 84145; 84443; 84484; 86140; 93005; 93306; 94640; 97162-GP; 97535-GP; A9270-GY; J1940; J3480; J7512; J7620